=== PATIENT | female | born 1955 | race Caucasian/White ===

== ENCOUNTER 2016-09-03 09:03 | Day surgery (SDC) | payer BC, OTHER ==
[2016-09-03 09:56] VITALS: BMI 21.6
[2016-09-03] MEDS ORDERED: LIDOCAINE HCL/PF 2% SDV 5ML VIAL ONE (10:22)
[2016-09-03] MEDS ORDERED: PROPOFOL 20 ML ONE (10:23)
[2016-09-03 11:24] VITALS: TEMP 97.5
[2016-09-03 12:07] VITALS: BP 111/58; PULSE 57
--- NOTE | 2016-09-04 14:19 | PATH ---
Surgical Pathology Report Patient Name: JADEN DE LA PAZ [facility]. Rec. #: [id number] /Age/Gender: 1955 (Age: 61) / F Account: [id number] Location: [facility]-ENDOSCOPY Taken: 09/03/2016 Received: 09/03/2016 Reported: 09/04/2016 Physicians: Wayne Knott M.D. Specimen(s) Received A: BX GASTRIC POLYPS B: BX ESOPHAGUS Clinical History GERD, dysphagia Hiatal hernia, gastritis, gastric polyps Final Diagnosis A. STOMACH, POLYPS, BIOPSY: GASTRIC OXYNTIC MUCOSA WITH FUNDIC GLANDS POLYPS AND MILD TO MODERATE CHRONIC GASTRITIS. IMMUNOSTAIN FOR H. PYLORI IS NEGATIVE FOR ORGANISMS. B. ESOPHAGUS, BIOPSY: SQUAMOUS EPITHELIUM WITH CHRONIC INFLAMMATION AND REFLUX TYPE CHANGES. NO COLUMNAR EPITHELIUM PRESENT (NO INTESTINAL METAPLASIA/PEDROZA'S ESOPHAGUS IDENTIFIED). NO EVIDENCE OF EOSINOPHILIC ESOPHAGITIS. Electronically Signed Juan Jose Ling M.D. Gross Description A. Received in formalin, labeled "biopsy gastritis and gastric polyps" are 5 carreon, irregular portions of soft tissue ranging from 0.1-0.5 cm in greatest dimension. The specimens are submitted in toto in one cassette. B. Received in formalin, labeled "biopsy esophagus" are 2 carreon, irregular portions of soft tissue averaging 0.3 cm in greatest dimension. The specimens are submitted in toto in one cassette. /09/03/201609/03/2016
== END 2016-09-03 12:08 | disposition home or self-care (01) ==
LOC: JASU-ENDO 09:03
PROVIDERS: ATTEND Internal Medicine Gastroenterology
PROC: 0DB68ZX Excision of Stomach, Via Natural or Artificial Opening Endoscopic, Diagnostic (ICD-10-PCS; 2016-09-03)
PROC: 0DB58ZX Excision of Esophagus, Via Natural or Artificial Opening Endoscopic, Diagnostic (ICD-10-PCS; 2016-09-03)
PROC: 0DB98ZX Excision of Duodenum, Via Natural or Artificial Opening Endoscopic, Diagnostic (ICD-10-PCS; principal; 2016-09-03 10:00)
DX: K29.70 Gastritis, unspecified, without bleeding (principal); K44.9 Diaphragmatic hernia without obstruction or gangrene; K31.7 Polyp of stomach and duodenum
CPT/HCPCS: 88305-TC; 88342-TC